=== PATIENT | female | born 1945 | race Caucasian/White ===

== ENCOUNTER → 2019-02-07 18:09 | Outpatient (CLI) | payer MEDICARE, SELFPAY ==
--- NOTE | 2019-02-07 18:18 | XR_ITS ---
XR chest 2V HISTORY: Cough, smoker ITS.REASON: Bronchitis ORDERING PHYSICIAN: Dex Park MD PATIENT AGE: 73 years COMPARISON: None FINDINGS: Normal heart size. There is some mild prominence of the right hilum with increased density in the central hilar region on the right. While this could be due to overlapping vessel, a hilar mass is an additional duration. Chest CT with contrast may be of further value. Faint nodular opacity in the right midlung laterally at 5 mm. There is mild hyperinflation with attenuation of the peripheral pulmonary vessels consistent with COPD. No acute bony findings. IMPRESSION: Increased density in the right hilum possibly due to hilar mass. Consider chest CT with contrast for further evaluation. COPD
== END ==
PROVIDERS: PCP Family Medicine; Visit Provider Family Medicine
DX: J40 Bronchitis, not specified as acute or chronic (principal)
CPT/HCPCS: 71046

== ENCOUNTER → 2019-02-17 11:45 | Outpatient (CLI) | payer MEDICARE, SELFPAY ==
[2019-02-17 12:13] LABS: Blood Urea Nitrogen 8 mg/dL (7-18); Creatinine,Serum 0.69 mg/dL (0.55-1.02); Estimated Glomerular Filt Rate 84 ml/min (>60); GFR (African American) 101 ML/MIN (>60)
--- NOTE | 2019-02-17 12:42 | CT_ITS ---
CT chest w con HISTORY: Possible right hilar mass, COPD, smoker, cough ITS.REASON: ABNORMAL CXR ORDERING PHYSICIAN: Dex Park MD PATIENT AGE: 73 years COMPARISON: 02/07/2019 TECHNIQUE: Axial images obtained following the administration of 75 mL of Optiray 350 . Sagittal, and coronal reformatted images are also generated and reviewed. All CT scans at the facility use one or more dose reduction, viz: automated exposure control, ma/kV adjustment per patient size (including targeted exams where dose is matched to indication, i.e. head), or iterative reconstruction technique. FINDINGS: There is mild prominence of the ascending aorta measuring up to 2.9 cm. No evidence of aortic dissection. Normal heart size. There are few scattered small nodes in the mediastinum and right hilum. Largest mediastinal node is in the precarinal area measuring 16 x 13 mm with a right hilar node measuring up to 14 x 11 mm. No obvious hilar mass. There is volume loss however the right middle lobe medially with increased density along the right heart border. Increased parenchymal opacity is present in the right infrahilar region measuring up to 5.4 cm cephalad to caudad, 3.6 cm transverse, and 2.5 cm AP. This may be due to chronic volume loss. This area surrounds the medial basilar segmental bronchus. Neoplasm is NOT excluded. Consider bronchoscopy for further evaluation. There is some patchy density in the right middle lobe laterally possibly due to some underlying infiltrate/post inflammatory change bronchial thickening is noted in the right perihilar region. There are mild atelectatic or fibrotic changes in the left lung base medially. There is hyperinflation with attenuation of peripheral pulmonary vessels consistent with COPD There is mild wedging involving T7 which appears chronic. Small sclerotic focus involves the lateral aspect of the right fifth rib nonspecific. Upper abdominal images are unremarkable. IMPRESSION: 1. Volume loss with parenchymal opacification of the medial segment of the right middle lobe and the medial basilar segment of the right lower lobe. While these findings could be postinflammatory in nature, one cannot exclude neoplasm with postobstructive change. Pulmonology consult with possible bronchoscopy suggested for further evaluation 2. Patchy areas of density in the lateral aspect of the right middle lobe consistent with infiltrate/post inflammatory change. There is patchy infiltrate in the right upper lobe laterally as well. 3. Mild mediastinal and right hilar adenopathy 4. COPD
--- NOTE | 2019-02-17 13:37 | HMH.ITSHM ---
Current Home Medications as stated by this patient Melissa Anglin or claims service representative. []ASPIRIN
== END ==
PROVIDERS: PCP Family Medicine; Visit Provider Family Medicine
DX: R93.89 Abnormal findings on diagnostic imaging of other specified body structures (principal)
CPT/HCPCS: 36415; 71260; 82565; 84520; Q9967

== ENCOUNTER → 2019-02-23 09:09 | Outpatient (CLI) | payer MEDICARE, SELFPAY ==
--- NOTE | 2019-02-23 09:32 | MM_ITS ---
MM Dig mamm BI DX w/CAD INDICATION: Left breast mass seen on previous CT scan ORDERING PHYSICIAN: Dex Park MD PATIENT AGE: 74 years COMPARISON: 02/17/2019 TECHNIQUE: Bilateral mammogram performed along with problem-solving views of the left breast. FINDINGS: There is average fibroglandular tissue. There are scattered benign-appearing calcifications. Benign-appearing nodular opacities present in the lateral aspect of the right breast at 3 mm. There is a spiculated mass involving the upper outer aspect of the left breast measuring 2 x 2 cm. Patient gives a history of having prior left breast surgery with a scar marked in this area. There is retraction of the skin at this region. This lesion has a high suspicion of malignancy. There are some faint pleomorphic calcifications within this lesion. A scar is an additional consideration. Ultrasound was suggested however the patient refused to have an ultrasound performed. There was an asymmetric density in the inferior aspect of the left breast for which spot compression view is recommended. IMPRESSION: There is a 2 cm spiculated mass in the upper outer aspect of the left breast corresponding to the CT abnormality.. This is highly suspicious for malignancy. Ultrasound is suggested. The patient did refuse ultrasound. Biopsy is recommended. It is possible this could be related to a scar however, all the features are suggestive of malignancy. Ultrasound of the left breast is recommended of this lesion and of the asymmetric density in the inferior aspect of the left breast BI-RADS Category: 4 Suspicious Abnormality-Biopsy Considered RECOMMENDED FOLLOW-UP: BIO - BIOPSY RECOMMENDED (A letter has been sent to the patient regarding results of the study.)
== END ==
PROVIDERS: PCP Family Medicine; Visit Provider Family Medicine
DX: R92.8 Other abnormal and inconclusive findings on diagnostic imaging of breast (principal); N64.9 Disorder of breast, unspecified
CPT/HCPCS: 77066